=== PATIENT | female | born 1995 | race Caucasian/White ===

== ENCOUNTER 2021-01-31 07:11 | Outpatient (CLI) | payer OTHER, BC ==
[~2021-01-31 07:11] MED LIST: IBUP-1223 PO; OXYC1TAB12 PO; PREN1TAB25 PO; RANI-244 PO
[2021-01-31] MEDS ORDERED: FUROSEMIDE 20 MG/2 ML ONE (07:39)
[2021-01-31] MEDS ORDERED: FUROSEMIDE 100 MG/10 ML ONE (07:55)
[2021-01-31] MEDS ORDERED: GADOTERATE 10 MMOL/20 ML VIAL ONE (07:55)
== END 2021-01-31 23:59 | disposition home or self-care (01) ==
LOC: RAD 07:11
PROVIDERS: ATTEND Surgery
DX: D73.4 Cyst of spleen (principal); R19.09 Other intra-abdominal and pelvic swelling, mass and lump; M54.5 Low back pain
CPT/HCPCS: 72197; 74183; A9575; J1940